=== PATIENT | female | born 1970 | race Caucasian/White ===

== ENCOUNTER 2019-09-10 09:02 | Emergency (ER) | payer OTHER ==
[~2019-09-10] VITALS: Ht 157.5 cm; Wt 95.4 kg
[2019-09-10] MEDS ORDERED: LOSARTAN POTASS50 MG PO (09:15)
[2019-09-10] MEDS ORDERED: HYDROCHLOROT25 MG PO (09:15)
[2019-09-10] MEDS ORDERED: REXULTI2 MG PO (09:16)
[2019-09-10] MEDS ORDERED: CYMBALTA60 MG PO (09:16)
[2019-09-10 10:12] LABS: HEMATOCRIT 37.5 % (37.0-47.0); HEMOGLOBIN 12.5 g/dl (12.0-16.0); IMMATURE GRANULOCYTES 0.2 % (0.0-5.0); MEAN CELL VOLUME 90.6 fL CALC (80.0-100.0); MEAN CORPUSCULAR HGB 30.2 pG CALC (26.0-32.0); MEAN CORPUSCULAR HGB CONC 33.3 g/dL CAL (32.0-36.0); NEUT# 3.2 thou/uL (2.00-7.15); RED BLOOD COUNT 4.14 mill/uL (4.20-5.60); RED CELL DISTRI WIDTH 13.2 % (11.5-15.5)
[2019-09-10] MEDS ORDERED: COMBIVIR 1501 COMBO PO (10:13)
[2019-09-10 10:25] VITALS: BP 116/64
[2019-09-10 10:37] LABS: ALBUMIN 4.6 g/dL (3.2-5.0); ALKALINE PHOSPHATASE 63 u/l (38-126); BILIRUBIN, TOTAL 0.3 mg/dL (0.0-1.4); BUN 25 mg/dL (7-17); CREATININE 0.9 mg/dL (0.5-1.0); SGOT/AST 32 u/l (14-36); TOTAL PROTEIN 7.6 g/dL (6.3-8.2)
== END 2019-09-10 10:25 | disposition home or self-care (01) | DRG 951 ==
LOC: ED 09:02
DX: Z77.21 Contact with and (suspected) exposure to potentially hazardous body fluids (principal)